=== PATIENT | male | born 1990 | race African-American/Black ===

== ENCOUNTER 2023-05-26 18:23 | Inpatient (IN) | payer OTHER ==
[2023-05-26 19:49] VITALS: BMI 22.4
[2023-05-27] MEDS ORDERED: LOPERAMIDE HCL 2 MG CAPSULE PO PRN (02:55)
[2023-05-27] MEDS ORDERED: IBUPROFEN 600 MG TABLET (FP) PO PRN (02:55)
[2023-05-27] MEDS ORDERED: guaiFENesin 600 MG TABLET.ER (FP) PO PRN (02:55)
[2023-05-27] MEDS ORDERED: BENZOCAINE/MENTHOL (CHLORASEPTIC ) LOZENGE MM PRN (02:55)
[2023-05-27] MEDS ORDERED: NALOXONE HCL 0.4 MG/ML VIAL IM PRN (02:55)
[2023-05-27] MEDS ORDERED: DICYCLOMINE HCL 10 MG CAPSULE PO PRN (02:55)
[2023-05-27] MEDS ORDERED: POLYETHYLENE GLYCOL (HEALTHYLAX) 3350 17 GM PACKET PO PRN (02:55)
[2023-05-27] MEDS ORDERED: IBUPROFEN 400 MG TABLET (FP) PO PRN (02:55)
[2023-05-27] MEDS ORDERED: BISMUTH SUBSALICYLATE 524 MG/30 ML PO PRN (02:55)
[2023-05-27] MEDS ORDERED: hydrOXYzine PAMOATE 25 MG CAPSULE (FP) PO PRN (02:55)
[2023-05-27] MEDS ORDERED: METHOCARBAMOL 500 MG TABLET PO PRN (02:55)
[2023-05-27] MEDS ORDERED: MAG HYDROX/AL HYDROX/SIMETH 30 ML UNIT-DOSE CUP PO PRN (02:55)
[2023-05-27] MEDS ORDERED: MAGNESIUM HYDROX 2400MG/30ML ORAL SUSPENSION 30 ML CUP PO PRN (02:55)
[2023-05-27] MEDS ORDERED: ONDANSETRON *ODT* 4 MG TABLET SL PRN (02:55)
[2023-05-27] MEDS ORDERED: ACETAMINOPHEN 325 MG TABLET (FP) PO PRN (02:55)
[2023-05-27] MEDS ORDERED: NALOXONE HCL (KLOXXADO) 8 MG SPRAY NS PRN (02:55)
[2023-05-27] MEDS ORDERED: BENZONATATE 200 MG CAPSULE PO PRN (02:55)
[2023-05-27] MEDS ORDERED: NICOTINE POLACRILEX 2 MG GUM BUC PRN (02:55)
[2023-05-27] MEDS ORDERED: methaDONE HCL 10 MG TABLET (FOR DETOX USE ONLY) PO ONE (02:58)
[2023-05-27] MEDS ORDERED: cloNIDine HCL 0.1 MG TABLET PO PRN (02:58)
[2023-05-27 09:22] VITALS: BP 122/64; PULSE 58; RESP 18; TEMP 97.8
[2023-05-27] MEDS ORDERED: PRENATAL VITAMINS W/ FOLIC ACID TABLET (FP) PO SCH (10:00)
[2023-05-27] MEDS ORDERED: NICOTINE 14 MG/24 HOURS TOPICAL PATCH TD SCH (10:00)
[2023-05-27] MEDS ORDERED: methaDONE HCL 40 MG DISPERSABLE TABLET PO ONE (10:41)
[2023-05-27 13:57] LABS: HEMATOCRIT 38.1 % (35.4-49); HEMOGLOBIN 12.2 GM/dL (11.7-16.9); MCH 29.9 pg (25.7-33.7); MEAN CELL VOLUME 93.4 fl (80-96); PLATELET COUNT 201 10^3/uL (134-434); RBC 4.08 M/mm3 (4.00-5.60); RDW 14.2 % (11.9-15.9); WHITE BLOOD COUNT 4.8 K/mm3 (4.0-10.0)
[2023-05-27 14:30] LABS: BLOOD UREA NITROGEN 9.2 mg/dL (7-18); CALCIUM 8.4 mg/dL (8.5-10.1)
[2023-05-27 14:31] LABS: ALBUMIN 2.9 g/dl (3.4-5.0)
[2023-05-27 14:33] LABS: CREATININE 0.9 mg/dL (0.55-1.3)
[2023-05-27 14:34] LABS: BILIRUBIN,TOTAL 0.2 mg/dL (0.2-1)
[2023-05-27] MEDS ORDERED: MELATONIN 5 MG TABLETS PO SCH (22:00)
[2023-05-27] MEDS ORDERED: THIAMINE HCL 100 MG TABLET (FP) PO SCH (22:00)
[2023-05-29] MEDS ORDERED: methaDONE HCL 10 MG TABLET (FOR DETOX USE ONLY) PO ONE (10:00)
[2023-05-31] MEDS ORDERED: methaDONE HCL 10 MG TABLET (FOR DETOX USE ONLY) PO ONE (10:00)
== END 2023-05-27 13:04 | disposition home or self-care (01) | DRG 773 ==
LOC: YASAS 18:23 → Y6N 05-27 03:15
PROVIDERS: ADMIT Allergy & Immunology; ATTEND Surgery
PROC: HZ2ZZZZ Detoxification Services for Substance Abuse Treatment (ICD-10-PCS; principal; 2023-05-27)
DX: F11.23 Opioid dependence with withdrawal (principal); F14.20 Cocaine dependence, uncomplicated; F17.210 Nicotine dependence, cigarettes, uncomplicated; F20.9 Schizophrenia, unspecified; F39 Unspecified mood [affective] disorder; F32.A Depression, unspecified; F41.9 Anxiety disorder, unspecified; J45.909 Unspecified asthma, uncomplicated
CPT/HCPCS: 36415; 80053; 85027; 86780; 87635; 87811; 93005; 93010